=== PATIENT | male | born 1975 | race Caucasian/White ===

== ENCOUNTER 2022-10-15 11:26 | Emergency (ER) | payer SELFPAY ==
[2022-10-15 12:04] VITALS: BP 131/93; PULSE 80; RESP 18; TEMP 36.4; O2SAT 97; BMI 27.4
--- NOTE | 2022-10-15 12:31 | CRLHL7_ITS ---
For Patients: As a result of the Cures Act, medical imaging exams and procedure reports are released immediately into your electronic medical record. You may view this report before your referring provider. If you have questions, please contact your health care provider. Indication: Pain related to injury Technique: A total of four views of the left thumb were acquired. Comparison: None Findings: Bones: Alignment is normal. No fractures or bone lesions. Joint spaces: Osteoarthritis Soft tissues: Soft tissue swelling. No gas within soft tissues. No radiopaque foreign body. Impression: Soft tissue swelling. Osteoarthritis. No acute fracture, dislocation or destructive process. Dictated by Ankit Huerta MD @ 10/15/2022 1:27:31 PM (Electronically Signed)
--- NOTE | 2022-10-15 12:52 | ED.UPPEXIN ---
HPI - Extremity Injury (Upper) General Date Seen: 10/15/22 Chief Complaint: Extremity Pain/Injury, Upper Stated Complaint: hurt thumb Time Seen by Provider: 10/15/22 12:28 Source: patient Mode of arrival: ambulatory Limitations: no limitations History of Present Illness HPI narrative: Patient is a very nice 39-year-old gentleman who presents here for evaluation of a left thumb injury, this occurred when large 250 lb piece of metal pushed against his left thumb. Describes pain over the base of his metacarpal, some mild swelling is noted with this no numbness and tingling, I just came in to get checked. He has been icing it since. Other injuries: none Hand dominance: Left Place: work Severity: mild Relieving factors: none Exacerbating factors: none Context: direct blow Associated symptoms: denies other symptoms Treatments prior to arrival: cold therapy Related Data Home Medications Medication Instructions Recorded Confirmed No Known Home Medications 10/15/22 10/15/22 Allergies Allergy/AdvReac Type Severity Reaction Status Date / Time codeine Allergy Mild Verified 10/15/22 12:09 Review of Systems Status of ROS: Reports: 6 or more systems reviewed and unremarkable except as noted in History and below Exam Narrative: Exam Narrative: Examination is done in room 4, he is tender over the base of his left thumb, earlier avoids any flexion extension or abduction adduction, more on the ulnar side of his thumb than the radial. Cap refill normal sensation normal. I discussed with him we will get an x-ray, Const: Vital Signs, click to edit/add: Vital Signs - 24 hr 10/15/22 12:04 Temperature 97.6 F Pulse Rate [Pulse Oximeter] 80 Respiratory Rate 18 Blood Pressure [Ri ght Upper Arm] 131/93 H Pulse Oximetry 97 Oxygen Delivery Me thod Room Air Documenting provider has reviewed patient's vital signs: yes Course Course Hospital Course: Review of x-ray is done, I do not see any acute bony abnormality is some soft tissue swelling, he has not really characteristically sore over the place where I would suspect he has ski years thumb, this seems to be more like a soft tissue contusion given the history of the injury. I think a thumb spica splint and follow-up with primary care would be in order here, ibuprofen Tylenol and light duty. Vital Signs Vital signs: Initial Vital Signs Temperature 97.6 F 10/15/22 12:04 Temperature Source Temporal Artery Scan 10/15/22 12:04 Pulse Rate 80 10/15/22 12:04 Respiratory Rate 18 10/15/22 12:04 Blood Pressure 131/93 H 10/15/22 12:04 Blood Pressure Mean 105 10/15/22 12:04 Blood Pressure Position Sitting 10/15/22 12:04 Pulse Oximetry 97 10/15/22 12:04 Oxygen Delivery Method 10/15/22 12:04 Vital Signs Temperature 97.6 F 10/15/22 12:04 Pulse Rate 80 10/15/22 12:04 Respiratory Rate 18 10/15/22 12:04 Blood Pressure 131/93 H 10/15/22 12:04 Pulse Oximetry 97 10/15/22 12:04 Oxygen Delivery Method 10/15/22 12:04 Temperature 97.6 F 10/15/22 12:04 Pulse Rate 80 10/15/22 12:04 Respiratory Rate 18 10/15/22 12:04 Blood Pressure 131/93 H 10/15/22 12:04 Pulse Oximetry 97 10/15/22 12:04 Oxygen Delivery Method 10/15/22 12:04 Discharge Plan Discharge Clinical Impression: Injury of thumb, left Patient Disposition: Home, Self-Care Condition: Stable Additional Instructions: Home, use of thumb spica for the next 10 days, recommend follow-up in 7 days if you still painful then can go longer with the splint, limited activity and working ability with left hand. Note written. Ibuprofen, Tylenol, for the discomfort also. Please wear the splint at all times even when he sleep, splint only comes off to clean yourself Prescriptions: No Action No Known Home Medications Follow Up/Referrals: Provider,Not a Local [Primary Care Provider] - Stand Alone Forms: [employer] Info Instructions
== END 2022-10-15 14:04 | disposition home or self-care (01) ==
PROVIDERS: Emergency Provider Family Medicine
DX: S69.92XA Unspecified injury of left wrist, hand and finger(s), initial encounter (principal); X58.XXXA Exposure to other specified factors, initial encounter; Y93.9 Activity, unspecified; Y92.89 Other specified places as the place of occurrence of the external cause; Y99.0 Civilian activity done for income or pay
CPT/HCPCS: 73140; 99283; 99284